=== PATIENT | female | born 1955 | race Caucasian/White ===

== ENCOUNTER 2020-02-09 12:33 | Outpatient (CLI) | payer BC, OTHER ==
[2020-02-10 13:28] LABS: SARS-CoV-2 MS2 Positive; SARS-CoV-2 N Gene Negative; SARS-CoV-2 S Gene Negative; SARS-CoV-2 orf1ab Negative
== END 2020-02-09 12:34 | disposition home or self-care (01) ==
LOC: LABSCS 12:33
PROVIDERS: ATTEND Internal Medicine Gastroenterology
DX: Z01.812 Encounter for preprocedural laboratory examination (principal); Z11.59 Encounter for screening for other viral diseases; R13.10 Dysphagia, unspecified
CPT/HCPCS: 87635; U0003

== ENCOUNTER 2024-01-06 16:44 | Inpatient (IN) | payer MEDICARE ==
[2024-01-06] MEDS ORDERED: Dexamethasone 10 MG/ML VIAL ONE (18:30)
[2024-01-06] MEDS ORDERED: Magnesium 2 GM/50 ML BAG (IN WATER) ONE (18:30)
[2024-01-06] MEDS ORDERED: LevoFLOXacin 750 mg/D5W 150 ml Premix Bag ONE (18:30)
[2024-01-06 18:42] LABS: Hematocrit 43.7 % (36.0-47.0); Mean Corpuscular Hemoglobin 29.4 pg (27.0-31.0); Mean Corpuscular Volume 91.8 fL (78.0-98.0); Platelet Count 328 10x3/uL (130-400); RBC Distribution Width 17.7 % (11.5-14.5); Red Blood Cell (RBC) Count 4.76 mill/uL (4.20-5.40)
[2024-01-06 18:57] LABS: Eosinophils 3 % (0-10); Lymphocytes 9 % (21-51); Monocytes 5 % (0-10); Neutrophil 82 % (42-75); Platelet Adequacy Comment Platelets Normal; Polychromasia SLIGHT = 2-3 cells HPF (0-2); Reactive Lymphocytes 1 % (0-10); Target Cells SLIGHT = 2-5 cells HPF (0-1)
[2024-01-06 19:03] LABS: Troponin I 0.019 ng/mL (< 0.028)
[2024-01-06] MEDS: Albuterol 2.5 MG (3 mL) NEB ONE (19:05)
[2024-01-06] MEDS ORDERED: Ipratropium/Albuterol 3 ML NEB ONE (19:08)
[2024-01-06 19:34] LABS: ALT (SGPT) 23 U/L (8-55); AST (SGOT) 39 U/L (5-34); Albumin 2.8 g/dL (3.4-4.8); Alkaline Phosphatase 88 U/L (40-110); Anion Gap 10 mmol/L (10-20); BUN (Urea Nitrogen) 17 mg/dL (9.8-20.1); Bilirubin, Total 0.5 mg/dL (0.2-1.2); Calc. Creatinine Clearance 0 mL/min (70-130); Calcium 8.2 mg/dL (7.8-10.44); Carbon Dioxide 22 mmol/L (23-31); Chloride 106 mmol/L (98-107); Estimated GFR 84; Globulin 2.7 g/dL (2.4-3.5); Glucose 103 mg/dL (80-115); Lipase 16 U/L (8-78); Potassium 3.5 mmol/L (3.5-5.1); Protein, Total 5.5 g/dL (5.8-8.1); Sodium 134 mmol/L (136-145)
[2024-01-06] MEDS ORDERED: Ondansetron ODT 4 MG TAB SL PRN (21:00)
[2024-01-06] MEDS ORDERED: Ondansetron PF 4 MG/2 ML Vial IVP PRN (21:00)
[2024-01-06] MEDS ORDERED: Acetaminophen 650 MG Suppository PR PRN (21:22)
[2024-01-06] MEDS ORDERED: Acetaminophen 325 MG TAB PO PRN (21:22)
[2024-01-06] MEDS ORDERED: Morphine 4 MG/ML VIAL ONE (21:44)
[2024-01-06 22:24] LABS: Bacteria/HPF 3+ HPF (None Seen); Bilirubin Negative (Negative); Blood, Urine 1+ (Negative); CAUTI Indications for Culture Fever or rigors; Clarity Clear (Clear); Glucose, Urine (Dipstick) Normal (Negative); Ketone, Urine Negative (Negative); Leukocyte 500 Leu/uL (Negative); Nitrite 2+ (Negative); Protein, Urine (Dipstick) 20 mg/dL (Neg-Trace); RBC/HPF 0-3 HPF (0-3); Specific Gravity, Urine 1.034 (1.002-1.036); Squamous Epithelial 0-3 HPF (0-3); Urobilinogen Normal mg/dL (Less than 2); WBC/HPF 21-50 HPF (0-3)
[2024-01-06 22:25] LABS: Urine Culture Reflex Yes Yes
[2024-01-06] MEDS: Sodium Chloride 0.9% 1,000 ML IV SCH (22:59)
[2024-01-06] MEDS: Morphine 4 MG/ML VIAL SLOW IVP SCH (23:45)
[2024-01-06] MEDS: Vancomycin (BATCH) 1.25 GM in Premix 1 BAG IVPB SCH (23:55)
[2024-01-07] MEDS: Cefepime 2 GM in Sodium Chloride 0.9% 100 ML IVPB SCH (00:05)
[2024-01-07 00:28] VITALS: BMI 21.1
[2024-01-07] MEDS: Doxycycline 100 MG in Sodium Chloride 0.9% 100 ML IVPB SCH (01:27)
[2024-01-07] MEDS: traMADol HCl 50 MG TAB PO PRN (01:30)
[2024-01-07] MEDS: Sodium Chloride 0.9% 1,000 ML IV SCH (01:31)
[2024-01-07] MEDS: Morphine 4 MG/ML VIAL SLOW IVP PRN (03:40)
[2024-01-07 04:41] LABS: #Basophils 0.03 10x3/uL (0.0-0.2); #Eosinphils Less than 0.03 10x3/uL (0.0-0.7); %Basophils 0.1 % (0.0-1.0); %Lymphocytes 1.9 % (21.0-51.0); %Monocytes 2.1 % (0.0-10.0); %Neutrophils 95.3 % (42.0-75.0); Hematocrit 42.7 % (36.0-47.0); Hemoglobin 13.3 g/dL (12.0-16.0); Mean Corpuscular HGB CONC 31.1 g/dL (32.0-36.0); Mean Corpuscular Hemoglobin 29.4 pg (27.0-31.0); Mean Corpuscular Volume 94.5 fL (78.0-98.0); Mean Platelet Volume 10.7 fL (7.4-10.4); Platelet Count 253 10x3/uL (130-400); RBC Distribution Width 17.4 % (11.5-14.5); Red Blood Cell (RBC) Count 4.52 mill/uL (4.20-5.40)
[2024-01-07 05:02] LABS: Anion Gap 15 mmol/L (10-20); BUN (Urea Nitrogen) 17 mg/dL (9.8-20.1); Calc. Creatinine Clearance 66 mL/min (70-130); Calcium 8.1 mg/dL (7.8-10.44); Carbon Dioxide 20 mmol/L (23-31); Chloride 104 mmol/L (98-107); Estimated GFR 90; Glucose 113 mg/dL (80-115); Sodium 134 mmol/L (136-145)
[2024-01-07] MEDS ORDERED: Polyethylene Glycol 3350 17 GM Packet PO PRN (05:43)
[2024-01-07] MEDS: Gabapentin 400 MG CAP PO SCH (09:14)
[2024-01-07] MEDS: Senokot S 8.6-50 MG TAB PO SCH (09:17)
[2024-01-07] MEDS ORDERED: HYDROcodone/Acetaminophen 5/325 mg Tablet PO PRN (11:26)
[2024-01-07] MEDS ORDERED: Ipratropium/Albuterol 3 ML NEB NEB PRN (11:27)
[2024-01-07] MEDS ORDERED: Albuterol 2.5 MG (3 mL) NEB NEB PRN (13:01)
[2024-01-07] MEDS: busPIRone HCl 5 MG TAB PO SCH (15:14)
[2024-01-07] MEDS: HYDROcodone/Acetaminophen 10/325 mg Tablet PO PRN (15:15)
[2024-01-07] MEDS: Acetylcysteine (MUCOMYST) 200 MG/ML (10 ML VIAL) NEB SCH (17:53)
[2024-01-07] MEDS: Mometasone 100 MCG HFA INHALER (RT USE) INH SCH (19:58)
[2024-01-07] MEDS: Ipratropium/Albuterol 3 ML NEB NEB SCH (19:59)
[2024-01-07] MEDS: Methocarbamol 500 MG TAB PO PRN (20:54)
[2024-01-07] MEDS: risperiDONE 3 MG TAB PO SCH (20:55)
[2024-01-08] MEDS: Transdermal Patch Removal TOP SCH (01:02)
[2024-01-08 06:30] LABS: #Basophils Less than 0.03 10x3/uL (0.0-0.2); %Basophils 0.1 % (0.0-1.0); %Eosinophils 2.3 % (0.0-10.0); %Lymphocytes 8.3 % (21.0-51.0); %Monocytes 7.4 % (0.0-10.0); %Neutrophils 81.3 % (42.0-75.0); Hemoglobin 11.7 g/dL (12.0-16.0); Mean Corpuscular HGB CONC 30.8 g/dL (32.0-36.0); Mean Corpuscular Volume 94.3 fL (78.0-98.0); Mean Platelet Volume 10.4 fL (7.4-10.4); Platelet Count 219 10x3/uL (130-400); RBC Distribution Width 17.2 % (11.5-14.5); Red Blood Cell (RBC) Count 4.03 mill/uL (4.20-5.40)
[2024-01-08 06:48] LABS: Anion Gap 15 mmol/L (10-20); BUN (Urea Nitrogen) 12 mg/dL (9.8-20.1); Calc. Creatinine Clearance 79 mL/min (70-130); Calcium 8.2 mg/dL (7.8-10.44); Carbon Dioxide 20 mmol/L (23-31); Chloride 109 mmol/L (98-107); Estimated GFR 98; Glucose 92 mg/dL (80-115); Potassium 3.7 mmol/L (3.5-5.1); Sodium 140 mmol/L (136-145)
[2024-01-08] MEDS: BuPROPion XL 150 MG ER.TAB PO SCH (08:56)
[2024-01-08] MEDS: Nicotine 21 MG PATCH TD SCH (08:56)
[2024-01-08] MEDS: Lidocaine 4% Patch TD SCH (08:57)
[2024-01-08] MEDS: Cholecalciferol 1,000 UNITS (25 MCG) TAB PO SCH (08:58)
[2024-01-08] MEDS: Acetylcysteine (MUCOMYST) 200 MG/ML (10 ML VIAL) NEB SCH (12:57)
[2024-01-09 05:50] LABS: #Basophils 0.03 10x3/uL (0.0-0.2); %Basophils 0.2 % (0.0-1.0); %Eosinophils 1.5 % (0.0-10.0); %Lymphocytes 8.1 % (21.0-51.0); %Monocytes 6.3 % (0.0-10.0); %Neutrophils 83.1 % (42.0-75.0); Hematocrit 39.6 % (36.0-47.0); Hemoglobin 12.5 g/dL (12.0-16.0); Mean Corpuscular HGB CONC 31.6 g/dL (32.0-36.0); Mean Corpuscular Hemoglobin 28.9 pg (27.0-31.0); Mean Corpuscular Volume 91.7 fL (78.0-98.0); Mean Platelet Volume 10.6 fL (7.4-10.4); Platelet Count 282 10x3/uL (130-400); Red Blood Cell (RBC) Count 4.32 mill/uL (4.20-5.40)
[2024-01-09 06:20] LABS: Anion Gap 13 mmol/L (10-20); BUN (Urea Nitrogen) 8 mg/dL (9.8-20.1); Calc. Creatinine Clearance 87 mL/min (70-130); Calcium 9.1 mg/dL (7.8-10.44); Carbon Dioxide 25 mmol/L (23-31); Chloride 105 mmol/L (98-107); Estimated GFR 100; Glucose 106 mg/dL (80-115); Potassium 3.4 mmol/L (3.5-5.1); Sodium 140 mmol/L (136-145)
[2024-01-10 05:51] LABS: #Basophils 0.05 10x3/uL (0.0-0.2); %Basophils 0.4 % (0.0-1.0); %Eosinophils 1.7 % (0.0-10.0); %Lymphocytes 7.7 % (21.0-51.0); %Monocytes 8.5 % (0.0-10.0); %Neutrophils 80.4 % (42.0-75.0); Hematocrit 36.5 % (36.0-47.0); Hemoglobin 11.6 g/dL (12.0-16.0); Mean Corpuscular HGB CONC 31.8 g/dL (32.0-36.0); Mean Corpuscular Volume 88.2 fL (78.0-98.0); Mean Platelet Volume 10.1 fL (7.4-10.4); Platelet Count 296 10x3/uL (130-400); Red Blood Cell (RBC) Count 4.14 mill/uL (4.20-5.40)
[2024-01-10 06:15] LABS: Anion Gap 12 mmol/L (10-20); BUN (Urea Nitrogen) 10 mg/dL (9.8-20.1); Calc. Creatinine Clearance 89 mL/min (70-130); Calcium 8.8 mg/dL (7.8-10.44); Carbon Dioxide 28 mmol/L (23-31); Chloride 105 mmol/L (98-107); Estimated GFR 101; Glucose 110 mg/dL (80-115); Potassium 3.1 mmol/L (3.5-5.1); Sodium 142 mmol/L (136-145)
[2024-01-10] MEDS: Enoxaparin 40 MG (0.4 mL) SYRINGE SC SCH (08:30)
[2024-01-10 11:52] VITALS: BP 160/79; TEMP 98.1
[2024-01-19] MEDS ORDERED: Alendronate Sodium 70 mg Tablet PO SCH (09:00)
== END 2024-01-10 14:00 | disposition home or self-care (01) | DRG 871 ==
LOC: ERS 16:44 → SURG A 20:55
PROVIDERS: ADMIT Student in an Organized Health Care Education/Training Program; ATTEND Family Medicine
DX: A41.9 Sepsis, unspecified organism (principal); J18.9 Pneumonia, unspecified organism; S22.42XA Multiple fractures of ribs, left side, initial encounter for closed fracture; N39.0 Urinary tract infection, site not specified; M81.0 Age-related osteoporosis without current pathological fracture; W19.XXXA Unspecified fall, initial encounter; Z90.49 Acquired absence of other specified parts of digestive tract; Z98.51 Tubal ligation status
CPT/HCPCS: 36415; 80048; 83605; 83690; 83880; 85025; 87040; 87077; 87086; 87186; 93005; 94640; 94644; J0692; J1100; J1650; J1956; J2270; J3370; J3475; J3490; J7050; J7608; J7611; J7620

== ENCOUNTER 2024-01-14 19:08 | Inpatient (IN) | payer MEDICARE ==
[~2024-01-14 19:08] MED LIST: Iopamidol-370 76% 500 ML MDV (1 ML CHARGE) ONE
[2024-01-14] MEDS ORDERED: NOREPINEPHRINE 8 MG/250 ML-D5W 250 ML ONE (19:13)
[2024-01-14] MEDS ORDERED: fentaNYL 50 mcg/mL 1 mL Vial ONE ×2 (19:32→19:52)
[2024-01-14 19:36] LABS: #Basophils 0.06 10x3/uL (0.0-0.2); %Basophils 0.3 % (0.0-1.0); %Eosinophils 0.2 % (0.0-10.0); %Lymphocytes 6.5 % (21.0-51.0); %Monocytes 7.5 % (0.0-10.0); %Neutrophils 82.6 % (42.0-75.0); Hemoglobin 12.4 g/dL (12.0-16.0); Mean Corpuscular HGB CONC 29.5 g/dL (32.0-36.0); Mean Corpuscular Hemoglobin 29.2 pg (27.0-31.0); Mean Corpuscular Volume 99.1 fL (78.0-98.0); Mean Platelet Volume 9.4 fL (7.4-10.4); Platelet Count 436 10x3/uL (130-400); RBC Distribution Width 16.1 % (11.5-14.5); Red Blood Cell (RBC) Count 4.24 mill/uL (4.20-5.40)
[2024-01-14 19:50] LABS: ALT (SGPT) 9 U/L (8-55); AST (SGOT) 20 U/L (5-34); Alkaline Phosphatase 188 U/L (40-110); Anion Gap 13 mmol/L (10-20); BUN (Urea Nitrogen) 14 mg/dL (9.8-20.1); Bilirubin, Total 0.3 mg/dL (0.2-1.2); Calc. Creatinine Clearance 0 mL/min (70-130); Calcium 8.8 mg/dL (7.8-10.44); Carbon Dioxide 29 mmol/L (23-31); Chloride 101 mmol/L (98-107); Estimated GFR 92; Globulin 3.3 g/dL (2.4-3.5); Glucose 99 mg/dL (80-115); Potassium 4.2 mmol/L (3.5-5.1); Protein, Total 6.3 g/dL (5.8-8.1); Sodium 139 mmol/L (136-145)
[2024-01-14 19:56] LABS: INR-International Normal Ratio 0.9; PTT 26.2 sec (22.9-36.1); Prothrombin Time 12.6 sec (12.0-14.7)
[2024-01-14 19:59] LABS: Analyzer IN Cardio ER; Base Excess (BEa) 4.1 mEq/L (-2.0 to +3.0); Calcium, Ionized (arterial) 1.13 mmol/L (1.12-1.30); Carboxyhemoglobin (COHb) 0.9 gm% (0.0-3.0); Hematocrit-ABG 36 % (36.0-47.0); Hemoglobin (Hb) 12.4 g/dL (12.0-16.0); O2 Tension (PaO2), arterial 254.5 mmHg (> 80.0); Potassium - ABG Lab 3.98 mmol/L (3.70-5.30); pH, Arterial 7.315 (7.35-7.45)
[2024-01-14] MEDS ORDERED: LORazepam 2 MG/ML SYR.(CARPUJECT) ONE (20:04)
[2024-01-14 20:06] LABS: Troponin I 0.017 ng/mL (< 0.028)
[2024-01-14] MEDS ORDERED: Midazolam HCl 5 mg/ml Vial ONE (20:37)
[2024-01-14] MEDS ORDERED: Propofol 1,000 MG/100 ML VIAL IV ONE (20:43)
[2024-01-14] MEDS ORDERED: Cefepime 2 GM VIAL ONE (20:52)
[2024-01-14 21:32] LABS: CO2 Tension 64.2 mmHg (35.0-45.0); Puncture Site LRA
[2024-01-14] MEDS ORDERED: Piperacillin/Tazobactam 4.5 GM VIAL ONE (22:08)
[2024-01-14] MEDS ORDERED: Sodium Chloride 0.9% 100 ML ONE (22:09)
[2024-01-14] MEDS ORDERED: Ipratropium/Albuterol 3 ML NEB NEB PRN (22:49)
[2024-01-14] MEDS ORDERED: Glucagon 1 MG/ML KIT IM PRN (22:51)
[2024-01-14] MEDS ORDERED: Dextrose 50% Abboject 50 ML SYRINGE SLOW IVP PRN (22:51)
[2024-01-14] MEDS ORDERED: Dextrose 5% in Water 1,000 ML IV PRN (22:51)
[2024-01-14] MEDS ORDERED: Electrolyte Replacement Protocol 1 EACH FS SCH (22:51)
[2024-01-14] MEDS ORDERED: DISCONTINUE PREVIOUS NARCOTIC PAIN MEDICATIONS AND BENZODIAZEPINES FS SCH (23:00)
[2024-01-14] MEDS ORDERED: Morphine 2 MG/ML VIAL SLOW IVP PRN (23:00)
[2024-01-14] MEDS ORDERED: Propofol BOLUS 1,000 MG/100 ML VIAL IV PRN (23:00)
[2024-01-14] MEDS ORDERED: Fentanyl BOLUS 250 ML IVPB PRN (23:00)
[2024-01-14] MEDS: Ipratropium/Albuterol 3 ML NEB NEB SCH (23:17)
[2024-01-14] MEDS ORDERED: Ondansetron ODT 4 MG TAB PO PRN (23:21)
[2024-01-14] MEDS ORDERED: Ondansetron PF 4 MG/2 ML Vial IVP PRN (23:21)
[2024-01-14] MEDS ORDERED: Acetaminophen 650 MG Suppository PR PRN (23:21)
[2024-01-14 23:22] LABS: Troponin I 0.021 ng/mL (< 0.028)
[2024-01-14 23:50] VITALS: BMI 19.5
[2024-01-15] MEDS: Lactated Ringer's 1,000 ML IV SCH (00:07)
[2024-01-15] MEDS: Nicotine 14 MG PATCH TD SCH (00:07)
[2024-01-15] MEDS: Vancomycin (BATCH) 1.25 GM in Premix 1 BAG IVPB SCH (00:07)
[2024-01-15] MEDS: Ventilator Sedation Protocol 1 EACH FS ONE (00:08)
[2024-01-15 01:17] LABS: Acetaminophen Less than 10 mcg/mL (10.0-30.0); Alcohol Less than 10.0 mg/dL (Less than 10); Salicylate Less than 8.0 mg/dL (15.0-30.0)
[2024-01-15 02:06] LABS: Amphetamine Not Detected (NotDetected); Barbiturates Screen Not Detected (NotDetected); Benzodiazepine Screen Detected (NotDetected); Cocaine Metabolite Screen Not Detected (NotDetected); Methadone Not Detected (NotDetected); Methamphetamine Not Detected (NotDetected); Opiate Screen Detected (NotDetected); Oxycodone Screen Not Detected (NotDetected); Phencyclidine (PCP) Not Detected (NotDetected); THC/Cannabinoid Screen Not Detected (NotDetected); Tricyclic Screen Not Detected (NotDetected)
[2024-01-15] MEDS: Lorazepam 2 MG/ML VIAL SLOW IVP PRN (03:25)
[2024-01-15] MEDS: Piperacillin/Tazobactam 3.375 GM in Sodium Chloride 0.9% 100 ML IVPB SCH ×2 (03:26→04:15)
[2024-01-15] MEDS ORDERED: NOREPINEPHRINE 8 MG/250 ML-D5W 250 ML IVPB SCH (04:00)
[2024-01-15 04:41] LABS: #Basophils 0.03 10x3/uL (0.0-0.2); %Basophils 0.2 % (0.0-1.0); %Eosinophils 0.5 % (0.0-10.0); %Lymphocytes 14.4 % (21.0-51.0); %Monocytes 6.4 % (0.0-10.0); %Neutrophils 76.8 % (42.0-75.0); Hematocrit 33.1 % (36.0-47.0); Hemoglobin 10.2 g/dL (12.0-16.0); Mean Corpuscular HGB CONC 30.8 g/dL (32.0-36.0); Mean Corpuscular Hemoglobin 29.3 pg (27.0-31.0); Mean Corpuscular Volume 95.1 fL (78.0-98.0); Mean Platelet Volume 9.8 fL (7.4-10.4); Platelet Count 465 10x3/uL (130-400); RBC Distribution Width 16.3 % (11.5-14.5); Red Blood Cell (RBC) Count 3.48 mill/uL (4.20-5.40)
[2024-01-15] MEDS ORDERED: Ipratropium/Albuterol 3 ML NEB EZPAP PRN (04:45)
[2024-01-15 05:01] LABS: Vancomycin, Random 17.3 ug/mL (See Comment)
[2024-01-15 05:03] LABS: Anion Gap 9 mmol/L (10-20); BUN (Urea Nitrogen) 15 mg/dL (9.8-20.1); Calc. Creatinine Clearance 79 mL/min (70-130); Calcium 8.2 mg/dL (7.8-10.44); Carbon Dioxide 31 mmol/L (23-31); Chloride 102 mmol/L (98-107); Estimated GFR 98; Glucose 73 mg/dL (80-115); Potassium 3.6 mmol/L (3.5-5.1); Sodium 138 mmol/L (136-145)
[2024-01-15 07:21] LABS: Actual Bicarbonate (HCO3a) 28.2 mEq/L (22-28); Base Excess (BEa) 3.3 mEq/L (-2.0 to +3.0); CO2 Tension 44.4 mmHg (35.0-45.0); Calcium, Ionized (arterial) 1.14 mmol/L (1.12-1.30); Hematocrit-ABG 33 % (36.0-47.0); Hemoglobin (Hb) 11.3 g/dL (12.0-16.0); Potassium - ABG Lab 3.49 mmol/L (3.70-5.30); pH, Arterial 7.421 (7.35-7.45)
[2024-01-15 07:22] LABS: O2 Tension (PaO2), arterial 58.9 mmHg (> 80.0); Puncture Site LRA
[2024-01-15] MEDS: Sodium Chloride 0.9% 1,000 ML IV SCH (08:10)
[2024-01-15] MEDS: Folic Acid 1 MG TAB PO SCH (09:42)
[2024-01-15] MEDS: Enoxaparin 40 MG (0.4 mL) SYRINGE SC SCH (09:42)
[2024-01-15] MEDS: Thiamine 100 MG TAB PO SCH (09:42)
[2024-01-15] MEDS: Famotidine 20 MG TAB PER TUBE SCH (09:42)
[2024-01-15] MEDS: Multivit, Therapeutic 1 TAB PO SCH (09:42)
[2024-01-15] MEDS: Vancomycin HCl 750 MG in Sodium Chloride 0.9% 250 ML 250 ML IVPB SCH (09:43)
[2024-01-15] MEDS: methylPREDNISolone Sod Succ 40 MG VIAL IVP SCH (09:44)
[2024-01-15] MEDS: Propofol 1,000 MG/100 ML VIAL IV PRN (10:02)
[2024-01-15] MEDS: Fentanyl CADD 100 ML IV SCH (14:43)
[2024-01-15] MEDS: Vancomycin 1 GM in Premix 1 BAG IVPB SCH (20:11)
[2024-01-15] MEDS ORDERED: Vancomycin 1 GM in Premix 1 BAG IVPB SCH (21:00)
[2024-01-15] MEDS: Midazolam HCl 2 mg/2 ml Vial SLOW IVP SCH (23:36)
[2024-01-16 04:44] LABS: Hematocrit 30.9 % (36.0-47.0); Hemoglobin 9.9 g/dL (12.0-16.0); Mean Corpuscular Hemoglobin 29.2 pg (27.0-31.0); Mean Corpuscular Volume 91.2 fL (78.0-98.0); Mean Platelet Volume 9.9 fL (7.4-10.4); Platelet Count 339 10x3/uL (130-400); RBC Distribution Width 16.6 % (11.5-14.5); Red Blood Cell (RBC) Count 3.39 mill/uL (4.20-5.40)
[2024-01-16 04:59] LABS: Vancomycin, Random 13.9 ug/mL (See Comment)
[2024-01-16 05:02] LABS: Anion Gap 10 mmol/L (10-20); BUN (Urea Nitrogen) 10 mg/dL (9.8-20.1); Calc. Creatinine Clearance 95 mL/min (70-130); Calcium 7.9 mg/dL (7.8-10.44); Carbon Dioxide 25 mmol/L (23-31); Chloride 102 mmol/L (98-107); Estimated GFR 103; Glucose 113 mg/dL (80-115); Potassium 3.3 mmol/L (3.5-5.1); Sodium 134 mmol/L (136-145)
[2024-01-16 07:35] LABS: Actual Bicarbonate (HCO3a) 25.1 mEq/L (22-28); Calcium, Ionized (arterial) 1.12 mmol/L (1.12-1.30); Carboxyhemoglobin (COHb) 0.3 gm% (0.0-3.0); Hematocrit-ABG 33 % (36.0-47.0); Hemoglobin (Hb) 11.3 g/dL (12.0-16.0); O2 Tension (PaO2), arterial 69.3 mmHg (> 80.0); Potassium - ABG Lab 3.45 mmol/L (3.70-5.30); pH, Arterial 7.438 (7.35-7.45)
[2024-01-16 07:36] LABS: Puncture Site LRA
[2024-01-16] MEDS: Potassium Chloride 20 MEQ in Premix 1 BAG IVPB SCH (09:17)
[2024-01-17 04:12] LABS: Hematocrit 33.1 % (36.0-47.0); Hemoglobin 10.6 g/dL (12.0-16.0); Mean Corpuscular Volume 87.3 fL (78.0-98.0); Mean Platelet Volume 10.2 fL (7.4-10.4); Platelet Count 412 10x3/uL (130-400); RBC Distribution Width 16.9 % (11.5-14.5); Red Blood Cell (RBC) Count 3.79 mill/uL (4.20-5.40)
[2024-01-17 04:35] LABS: Anion Gap 10 mmol/L (10-20); BUN (Urea Nitrogen) 10 mg/dL (9.8-20.1); Calc. Creatinine Clearance 94 mL/min (70-130); Carbon Dioxide 24 mmol/L (23-31); Chloride 104 mmol/L (98-107); Estimated GFR 101; Glucose 117 mg/dL (80-115); Magnesium 1.7 mg/dL (1.6-2.6); Potassium 3.8 mmol/L (3.5-5.1); Sodium 134 mmol/L (136-145)
[2024-01-17] MEDS: Magnesium 2 GM/50 ML(in water) 2 GM in Premix 1 BAG IVPB SCH (07:57)
[2024-01-17] MEDS: Budesonide 0.5 MG/2 ML NEB ONE (12:31)
[2024-01-17] MEDS: Lorazepam 2 MG/ML VIAL SLOW IVP SCH (13:35)
[2024-01-17 14:30] LABS: Actual Bicarbonate (HCO3v) 22.5 mEq/L (22-28); Base Excess -2.6 mEq/L (-2.0 to +3.0); Calcium, Ionized (venous) 0.98 mmol/L (1.16-1.32); Chloride (VBG) 104 mmol/L (98-106); Hematocrit-VBG 36 % (36.0-47.0); Hemoglobin (Hb) 12.4 g/dL (11.7-16.1); Potassium (VBG) 4.17 mmol/L (3.70-5.30); Sodium 137 mmol/L (133-146); pH (venous) 7.364 (7.32-7.43)
[2024-01-17] MEDS: Morphine 4 MG/ML VIAL SLOW IVP SCH (17:06)
[2024-01-17 21:22] LABS: Actual Bicarbonate (HCO3a) 26.8 mEq/L (22-28); Analyzer IN Cardio ER; Base Excess (BEa) -0.7 mEq/L (-2.0 to +3.0); CO2 Tension 57.7 mmHg (35.0-45.0); Calcium, Ionized (arterial) 1.17 mmol/L (1.12-1.30); Carboxyhemoglobin (COHb) 0.3 gm% (0.0-3.0); Hematocrit-ABG 36 % (36.0-47.0); Hemoglobin (Hb) 12.1 g/dL (12.0-16.0); O2 Tension (PaO2), arterial 260.2 mmHg (> 80.0); Potassium - ABG Lab 4.44 mmol/L (3.70-5.30); pH, Arterial 7.285 (7.35-7.45)
[2024-01-17 21:37] LABS: ALV-art Gradient -47.125 mmHg (0-20); Puncture Site LRA
[2024-01-17 23:36] LABS: Actual Bicarbonate (HCO3a) 22.4 mEq/L (22-28); Base Excess (BEa) -4.7 mEq/L (-2.0 to +3.0); CO2 Tension 49.5 mmHg (35.0-45.0); Calcium, Ionized (arterial) 1.18 mmol/L (1.12-1.30); Carboxyhemoglobin (COHb) 0.7 gm% (0.0-3.0); Hematocrit-ABG 36 % (36.0-47.0); Hemoglobin (Hb) 12.1 g/dL (12.0-16.0); O2 Tension (PaO2), arterial 81.3 mmHg (> 80.0); Potassium - ABG Lab 4.23 mmol/L (3.70-5.30); Puncture Site RRA; pH, Arterial 7.273 (7.35-7.45)
[2024-01-17 23:37] LABS: ALV-art Gradient 142.025 mmHg (0-20)
[2024-01-18] MEDS ORDERED: Lorazepam 1 MG TAB PO PRN
[2024-01-18] MEDS ORDERED: Dexmedetomidine In 0.9 % NaCl 100 ML IVPB SCH (03:30)
[2024-01-18 04:58] LABS: #Basophils 0.04 10x3/uL (0.0-0.2); #Eosinphils Less than 0.03 10x3/uL (0.0-0.7); %Basophils 0.2 % (0.0-1.0); %Lymphocytes 3.6 % (21.0-51.0); %Neutrophils 91.3 % (42.0-75.0); Hematocrit 34.5 % (36.0-47.0); Hemoglobin 10.8 g/dL (12.0-16.0); Mean Corpuscular HGB CONC 31.3 g/dL (32.0-36.0); Mean Corpuscular Hemoglobin 28.6 pg (27.0-31.0); Mean Corpuscular Volume 91.3 fL (78.0-98.0); Platelet Count 528 10x3/uL (130-400); RBC Distribution Width 17.2 % (11.5-14.5); Red Blood Cell (RBC) Count 3.78 mill/uL (4.20-5.40)
[2024-01-18 05:10] LABS: Anion Gap 14 mmol/L (10-20); BUN (Urea Nitrogen) 9 mg/dL (9.8-20.1); Calc. Creatinine Clearance 85 mL/min (70-130); Calcium 8.1 mg/dL (7.8-10.44); Carbon Dioxide 25 mmol/L (23-31); Chloride 106 mmol/L (98-107); Estimated GFR 99; Glucose 86 mg/dL (80-115); Potassium 4.1 mmol/L (3.5-5.1); Sodium 141 mmol/L (136-145); Vancomycin, Random 22.1 ug/mL (See Comment)
[2024-01-18 05:13] LABS: Magnesium 1.9 mg/dL (1.6-2.6)
[2024-01-18] MEDS ORDERED: Ondansetron ODT 4 MG TAB PO PRN (08:15)
[2024-01-18] MEDS: Folic Acid 1 MG TAB PO SCH (08:18)
[2024-01-18] MEDS: Thiamine HCl 200 MG/2 ML VIAL SLOW IVP SCH (08:19)
[2024-01-18] MEDS: Lorazepam 1 MG TAB PO SCH (08:20)
[2024-01-18] MEDS: Lorazepam 2 MG/ML VIAL IM PRN (08:20)
[2024-01-18] MEDS: Magnesium 2 GM/50 ML(in water) 2 GM in Premix 1 BAG IVPB SCH (08:23)
[2024-01-18] MEDS: Multivit, Therapeutic 1 TAB PO SCH (09:13)
[2024-01-18] MEDS: HYDROcodone/Acetaminophen 10/325 mg Tablet PO PRN (09:49)
[2024-01-18] MEDS: Gabapentin 400 MG CAP PO SCH ×2 (10:27→15:01)
[2024-01-18] MEDS: Vancomycin HCl 750 MG in Sodium Chloride 0.9% 250 ML 250 ML IVPB SCH (20:52)
[2024-01-19 04:38] LABS: #Basophils Less than 0.03 10x3/uL (0.0-0.2); #Eosinphils Less than 0.03 10x3/uL (0.0-0.7); %Basophils 0.1 % (0.0-1.0); %Eosinophils 0.1 % (0.0-10.0); %Lymphocytes 5.8 % (21.0-51.0); %Monocytes 3.8 % (0.0-10.0); %Neutrophils 89.4 % (42.0-75.0); Hematocrit 33.9 % (36.0-47.0); Hemoglobin 10.6 g/dL (12.0-16.0); Mean Corpuscular HGB CONC 31.3 g/dL (32.0-36.0); Mean Corpuscular Hemoglobin 28.5 pg (27.0-31.0); Mean Corpuscular Volume 91.1 fL (78.0-98.0); Mean Platelet Volume 10.2 fL (7.4-10.4); Platelet Count 521 10x3/uL (130-400); RBC Distribution Width 17.2 % (11.5-14.5); Red Blood Cell (RBC) Count 3.72 mill/uL (4.20-5.40)
[2024-01-19 04:59] LABS: Vancomycin, Random 20.6 ug/mL (See Comment)
[2024-01-19 05:07] LABS: Anion Gap 10 mmol/L (10-20); BUN (Urea Nitrogen) 8 mg/dL (9.8-20.1); Calc. Creatinine Clearance 89 mL/min (70-130); Calcium 8.1 mg/dL (7.8-10.44); Carbon Dioxide 31 mmol/L (23-31); Chloride 106 mmol/L (98-107); Estimated GFR 100; Glucose 124 mg/dL (80-115); Potassium 3.9 mmol/L (3.5-5.1); Sodium 143 mmol/L (136-145)
[2024-01-19] MEDS: Lorazepam 1 MG TAB PO SCH (05:12)
[2024-01-19] MEDS ORDERED: Lorazepam 1 MG TAB PO PRN (08:15)
[2024-01-19] MEDS: Acetaminophen 325 MG TAB PO PRN (08:51)
[2024-01-19] MEDS: Magnesium 2 GM/50 ML(in water) 2 GM in Premix 1 BAG IVPB SCH (08:52)
[2024-01-19] MEDS ORDERED: rOPINIRole HCl 1 MG TAB PO PRN (09:56)
[2024-01-19] MEDS: Senokot S 8.6-50 MG TAB PO SCH (10:40)
[2024-01-19] MEDS ORDERED: Non-Formulary Item 1 EACH (Buspirone Hcl [Buspirone Hcl] 15 MG Tablet) PO SCH (15:00)
[2024-01-19] MEDS: Atorvastatin Calcium 40 MG TAB PO SCH (20:56)
[2024-01-19] MEDS: risperiDONE 3 MG TAB PO SCH (20:58)
[2024-01-20 05:03] LABS: #Basophils Less than 0.03 10x3/uL (0.0-0.2); #Eosinphils Less than 0.03 10x3/uL (0.0-0.7); %Basophils 0.1 % (0.0-1.0); %Eosinophils 0.1 % (0.0-10.0); %Lymphocytes 5.5 % (21.0-51.0); %Monocytes 3.8 % (0.0-10.0); %Neutrophils 89.8 % (42.0-75.0); Hematocrit 31.7 % (36.0-47.0); Hemoglobin 9.8 g/dL (12.0-16.0); Mean Corpuscular HGB CONC 30.9 g/dL (32.0-36.0); Mean Corpuscular Hemoglobin 28.7 pg (27.0-31.0); Mean Platelet Volume 10.1 fL (7.4-10.4); Platelet Count 466 10x3/uL (130-400); RBC Distribution Width 17.3 % (11.5-14.5); Red Blood Cell (RBC) Count 3.41 mill/uL (4.20-5.40)
[2024-01-20 05:18] LABS: Anion Gap 11 mmol/L (10-20); BUN (Urea Nitrogen) 7 mg/dL (9.8-20.1); Calc. Creatinine Clearance 85 mL/min (70-130); Calcium 7.9 mg/dL (7.8-10.44); Carbon Dioxide 33 mmol/L (23-31); Chloride 105 mmol/L (98-107); Estimated GFR 99; Glucose 109 mg/dL (80-115); Magnesium 1.9 mg/dL (1.6-2.6); Potassium 3.4 mmol/L (3.5-5.1); Sodium 146 mmol/L (136-145)
[2024-01-20] MEDS: Lorazepam 0.5 MG TAB PO SCH (06:16)
[2024-01-20] MEDS ORDERED: Lorazepam 1 MG TAB PO PRN (08:15)
[2024-01-20] MEDS ORDERED: Non-Formulary Item 1 EACH (Bupropion Hcl [Wellbutrin Xl] 300 MG Tab.Er.24h) PO SCH (09:00)
[2024-01-20] MEDS: Potassium Chloride 20 MEQ TAB PO SCH (09:28)
[2024-01-20] MEDS: Magnesium 2 GM/50 ML(in water) 2 GM in Premix 1 BAG IVPB SCH (09:29)
[2024-01-20 10:54] VITALS: BMI 19.3
[2024-01-20] MEDS ORDERED: Labetalol HCl 100 MG/20 ML VIAL SLOW IVP PRN (13:09)
[2024-01-20] MEDS ORDERED: QUEtiapine 25 MG TAB PO SCH (21:00)
[2024-01-20] MEDS: traZODone HCl 50 MG TAB PO SCH (21:04)
[2024-01-21 05:16] LABS: #Basophils Less than 0.03 10x3/uL (0.0-0.2); %Basophils 0.1 % (0.0-1.0); %Eosinophils 0.3 % (0.0-10.0); %Lymphocytes 7.3 % (21.0-51.0); %Monocytes 3.8 % (0.0-10.0); %Neutrophils 87.8 % (42.0-75.0); Hematocrit 34.4 % (36.0-47.0); Hemoglobin 10.6 g/dL (12.0-16.0); Mean Corpuscular HGB CONC 30.8 g/dL (32.0-36.0); Mean Corpuscular Volume 90.8 fL (78.0-98.0); Mean Platelet Volume 10.2 fL (7.4-10.4); Platelet Count 534 10x3/uL (130-400); RBC Distribution Width 17.3 % (11.5-14.5); Red Blood Cell (RBC) Count 3.79 mill/uL (4.20-5.40)
[2024-01-21 05:44] LABS: Anion Gap 15 mmol/L (10-20); BUN (Urea Nitrogen) 7 mg/dL (9.8-20.1); Calc. Creatinine Clearance 80 mL/min (70-130); Calcium 8.8 mg/dL (7.8-10.44); Carbon Dioxide 32 mmol/L (23-31); Chloride 102 mmol/L (98-107); Estimated GFR 99; Glucose 123 mg/dL (80-115); Magnesium 1.9 mg/dL (1.6-2.6); Potassium 4.1 mmol/L (3.5-5.1); Sodium 145 mmol/L (136-145)
[2024-01-21] MEDS ORDERED: Lorazepam 0.5 MG TAB PO PRN (06:00)
[2024-01-21] MEDS: Magnesium 2 GM/50 ML(in water) 2 GM in Premix 1 BAG IVPB SCH (08:13)
[2024-01-21] MEDS: Thiamine 100 MG TAB PO SCH (08:17)
[2024-01-21] MEDS: Mometasone 100 MCG HFA INHALER (RT USE) INH SCH (19:25)
[2024-01-22 05:10] LABS: #Basophils Less than 0.03 10x3/uL (0.0-0.2); %Basophils 0.1 % (0.0-1.0); %Eosinophils 0.2 % (0.0-10.0); %Lymphocytes 5.3 % (21.0-51.0); %Monocytes 5.4 % (0.0-10.0); %Neutrophils 88.4 % (42.0-75.0); Hematocrit 31.9 % (36.0-47.0); Hemoglobin 10.1 g/dL (12.0-16.0); Mean Corpuscular HGB CONC 31.7 g/dL (32.0-36.0); Mean Corpuscular Hemoglobin 29.2 pg (27.0-31.0); Mean Corpuscular Volume 92.2 fL (78.0-98.0); Platelet Count 536 10x3/uL (130-400); RBC Distribution Width 17.3 % (11.5-14.5); Red Blood Cell (RBC) Count 3.46 mill/uL (4.20-5.40)
[2024-01-22 05:31] LABS: Anion Gap 14 mmol/L (10-20); BUN (Urea Nitrogen) 10 mg/dL (9.8-20.1); Calc. Creatinine Clearance 73 mL/min (70-130); Calcium 8.4 mg/dL (7.8-10.44); Carbon Dioxide 32 mmol/L (23-31); Chloride 97 mmol/L (98-107); Estimated GFR 97; Glucose 141 mg/dL (80-115); Magnesium 1.9 mg/dL (1.6-2.6); Potassium 3.5 mmol/L (3.5-5.1); Sodium 139 mmol/L (136-145)
[2024-01-22 07:11] VITALS: TEMP 98.3
[2024-01-22] MEDS: Magnesium 2 GM/50 ML(in water) 2 GM in Premix 1 BAG IVPB SCH (08:14)
[2024-01-22] MEDS: Potassium Chloride 20 MEQ TAB PO SCH (08:15)
[2024-01-22 15:07] VITALS: BP 178/80
== END 2024-01-22 15:41 | disposition home health service (06) | DRG 208 ==
LOC: ERS 19:08 → CCU 20:45 → MSONC 01-20 13:14
PROVIDERS: ADMIT Internal Medicine; ATTEND Family Medicine
PROC: 5A1945Z Respiratory Ventilation, 24-96 Consecutive Hours (ICD-10-PCS; principal; 2024-01-14)
PROC: 0BH17EZ Insertion of Endotracheal Airway into Trachea, Via Natural or Artificial Opening (ICD-10-PCS; 2024-01-14)
PROC: 4A133R1 Monitoring of Arterial Saturation, Peripheral, Percutaneous Approach (ICD-10-PCS; 2024-01-14)
PROC: 3E033XZ Introduction of Vasopressor into Peripheral Vein, Percutaneous Approach (ICD-10-PCS; 2024-01-14)
PROC: 3E03329 Introduction of Other Anti-infective into Peripheral Vein, Percutaneous Approach (ICD-10-PCS; 2024-01-14)
PROC: 5A09357 Assistance with Respiratory Ventilation, Less than 24 Consecutive Hours, Continuous Positive Airway Pressure (ICD-10-PCS; 2024-01-17)
DX: J96.21 Acute and chronic respiratory failure with hypoxia (principal); J69.0 Pneumonitis due to inhalation of food and vomit; G93.41 Metabolic encephalopathy; J15.1 Pneumonia due to Pseudomonas; A41.52 Sepsis due to Pseudomonas; S22.42XA Multiple fractures of ribs, left side, initial encounter for closed fracture; N39.0 Urinary tract infection, site not specified; E87.1 Hypo-osmolality and hyponatremia; J44.1 Chronic obstructive pulmonary disease with (acute) exacerbation; J44.0 Chronic obstructive pulmonary disease with (acute) lower respiratory infection; J96.22 Acute and chronic respiratory failure with hypercapnia; W19.XXXA Unspecified fall, initial encounter; M54.9 Dorsalgia, unspecified; G89.29 Other chronic pain; M81.0 Age-related osteoporosis without current pathological fracture; F17.210 Nicotine dependence, cigarettes, uncomplicated; I95.2 Hypotension due to drugs; E87.6 Hypokalemia; D63.8 Anemia in other chronic diseases classified elsewhere; S62.600A Fracture of unspecified phalanx of right index finger, initial encounter for closed fracture; Z79.899 Other long term (current) drug therapy; Z98.890 Other specified postprocedural states; Z90.49 Acquired absence of other specified parts of digestive tract
CPT/HCPCS: 36415; 36416; 36556; 36600; 70450; 70496; 70498; 71045; 71275; 80048; 80053; 80202; 80306; 80307; 82805; 83605; 83735; 83880; 84145; 84484; 85025; 85027; 85610; 85730; 87040; 87070; 87077; 87186; 87205; 89220; 93005; 93306; 94002; 94003; 94640; 94660; 96365; 96366; 96368; 96375; J0692; J1650; J2060; J2250; J2270; J2543; J2704; J2920; J3010; J3370; J3370-JW; J3411; J3475; J3480; J3490; J7050; J7120; J7620; J7626; Q9967